=== PATIENT | female | born 1975 | race Hispanic/Latino ===

== ENCOUNTER 2017-07-30 11:59 | Emergency (ER) | payer SELFPAY ==
[2017-07-30 12:20] LABS: APPEARANCE,URINE Cloudy (CLEAR); BILIRUBIN,URINE Negative (NEGATIVE); COLOR,URINE Yellow (YELLOW); GLUCOSE, URINE (UA) Negative (NEGATIVE); KETONES,URINE Negative (NEGATIVE); LEUKOCYTE ESTERASE ,URINE Negative (NEGATIVE); NITRATE,URINE Negative (NEGATIVE); OCCULT BLOOD,URINE Negative (NEGATIVE); PH,URINE 5.5 (5.0-8.0); PROTEIN,URINE Negative (NEGATIVE); UROBILINOGEN,URINE 0.2 mg/dL (0.2-1.0)
[2017-07-30 12:21] LABS: HCG,QUAL RESULT NEGATIVE (NEGATIVE)
[2017-07-30 12:26] LABS: BACTERIA,URINE Rare /HPF (None Seen); RBC,URINE 0-1 /HPF (0-1); SQUAMOUS EPITHELIAL CELL,UR Few /LPF (0-2)
[2017-07-30] MEDS ORDERED: KETOROLAC TROMETHAMINE 30MG/ML ONE (12:47)
== END 2017-07-30 13:02 | disposition home or self-care (01) ==
LOC: EDH 11:59
DX: S39.012A Strain of muscle, fascia and tendon of lower back, initial encounter (principal); Z87.891 Personal history of nicotine dependence; W18.39XA Other fall on same level, initial encounter; Y93.21 Activity, ice skating; Y92.89 Other specified places as the place of occurrence of the external cause; Y99.8 Other external cause status
CPT/HCPCS: 81001; 81025; 96372; 99284; J1885

== ENCOUNTER 2019-03-21 13:46 | Emergency (ER) | payer SELFPAY ==
[2019-03-21] MEDS ORDERED: CEFTRIAXONE SODIUM 1 GM ONE (14:21)
[2019-03-21] MEDS ORDERED: LIDOCAINE HCL-MPF 1% 2ML VIAL ONE (14:21)
== END 2019-03-21 15:39 | disposition home or self-care (01) ==
LOC: EDH 13:46
DX: K02.9 Dental caries, unspecified (principal); F12.10 Cannabis abuse, uncomplicated; Z72.0 Tobacco use
CPT/HCPCS: 96372; 99283; J0696; J3490

== ENCOUNTER 2022-04-29 11:36 | Emergency (ER) | payer SELFPAY ==
[~2022-04-29] VITALS: Ht 162.6 cm; Wt 65.8 kg
[2022-04-29 13:00] LABS: APPEARANCE,URINE CLEAR (CLEAR); BILIRUBIN,URINE NEGATIVE (NEGATIVE); COLOR,URINE YELLOW (YELLOW); GLUCOSE, URINE (UA) NEGATIVE (NEGATIVE); KETONES,URINE NEGATIVE (NEGATIVE); LEUKOCYTE ESTERASE ,URINE 25 Leu/uL (NEGATIVE); NITRATE,URINE 2+ (NEGATIVE); OCCULT BLOOD,URINE NEGATIVE (NEGATIVE); PROTEIN,URINE 10 mg/dL (NEGATIVE); UROBILINOGEN,URINE 0.2 mg/dL (0.2-1.0)
[2022-04-29] MEDS ORDERED: KETOROLAC 60 MG VIAL (30MG/ML) IM ONE (13:00)
[2022-04-29] MEDS ORDERED: CYCLOBENZAPRINE HCL 10 MG TABLET PO ONE (13:00)
[2022-04-29] MEDS ORDERED: HYDROCODONE/ACETAMINOPHEN 10/325 MG TAB PO ONE (13:00)
[2022-04-29 13:05] LABS: BACTERIA,URINE RARE /HPF (None Seen); MUCUS,URINE FEW LPF (None Seen); SQUAMOUS EPITHELIAL CELL,UR RARE /HPF (0-2)
[2022-04-29] MEDS ORDERED: CEFTRIAXONE 1G VIAL IM ONE (13:30)
[2022-04-29] MEDS ORDERED: NAPR-1180 PO (13:35)
[2022-04-29] MEDS ORDERED: CEPH500B PO (13:35)
[2022-04-29] MEDS ORDERED: CYCL10TA16 PO (13:35)
[2022-04-29 13:45] VITALS: BP 147/89
== END 2022-04-29 13:50 | disposition home or self-care (01) ==
LOC: EDH 11:36
DX: S39.012A Strain of muscle, fascia and tendon of lower back, initial encounter (principal); N39.0 Urinary tract infection, site not specified; Z79.899 Other long term (current) drug therapy; X58.XXXA Exposure to other specified factors, initial encounter; Y93.89 Activity, other specified; Y92.89 Other specified places as the place of occurrence of the external cause; Y99.8 Other external cause status
CPT/HCPCS: 99284; 87077; 87088; 87186; 81001; 81025; 96372 ×2; J0696; J1885